=== PATIENT | female | born 1970 | race Hispanic/Latino ===

== ENCOUNTER 2020-02-28 17:56 | Emergency (ER) | payer OTHER ==
[~2020-02-28] VITALS: Ht 160 cm; Wt 74.8 kg
[2020-02-28] MEDS ORDERED: HYDROCODONE/APAP 10MG-325MG TAB PO NR (18:15)
--- NOTE | 2020-02-28 18:55 | Diagnostic Imaging Report ---
Exam: Right ankle 3 views, right foot 3 views History: Twisted ankle Comparison: None. Findings: No acute, displaced fracture or dislocation. Tibial plafond and talar dome are well-maintained. Ankle mortise is preserved. Appropriate alignment between the medial cuneiform and second metatarsal base in keeping with an intact Lisfranc ligament. Joint spaces are well-maintained. Soft tissues unremarkable. Impression: No acute osseous abnormality. Signed by: Dr. Sudheer Amin M.D. on 02/28/2020 6:52 PM
--- NOTE | 2020-02-28 18:59 | Diagnostic Imaging Report ---
Exam: Right lower leg 2 views History: Twisted ankle, injury Comparison: None. Findings: No acute, displaced fracture or dislocation. Partially visualized knee joint space is well-maintained. Soft tissues unremarkable. Impression: No acute osseous abnormality. Signed by: Dr. Sudheer Amin M.D. on 02/28/2020 6:55 PM
== END 2020-02-28 20:10 | disposition home or self-care (01) ==
LOC: ER 18:10
DX: S93.491A Sprain of other ligament of right ankle, initial encounter (principal); M25.571 Pain in right ankle and joints of right foot; X50.1XXA Overexertion from prolonged static or awkward postures, initial encounter; Y92.008 Other place in unspecified non-institutional (private) residence as the place of occurrence of the external cause; I10 Essential (primary) hypertension; F41.9 Anxiety disorder, unspecified
CPT/HCPCS: 99283

== ENCOUNTER 2022-01-27 22:12 | Emergency (ER) | payer OTHER ==
[~2022-01-27] VITALS: Ht 160 cm; Wt 72.6 kg
[2022-01-27] MEDS ORDERED: DEXAMETHASONE SOD PHOS 10 MG/1 ML VIAL IM ONE (22:30)
[2022-01-27] MEDS ORDERED: KETOROLAC TROMETHAMINE 60 MG/2 ML VIAL IM ONE (22:30)
[2022-01-27] MEDS ORDERED: DEXAMETHASONE SOD PHOS 10 MG/1 ML VIAL ONE (22:35)
== END 2022-01-27 23:00 | disposition home or self-care (01) ==
LOC: ER 22:20
DX: M25.511 Pain in right shoulder (principal); S46.811A Strain of other muscles, fascia and tendons at shoulder and upper arm level, right arm, initial encounter; X50.9XXA Other and unspecified overexertion or strenuous movements or postures, initial encounter; Y93.K1 Activity, walking an animal; Y92.89 Other specified places as the place of occurrence of the external cause
CPT/HCPCS: 99283; J1100

== ENCOUNTER 2025-04-12 18:53 | Emergency (ER) | payer SELFPAY ==
[~2025-04-12] VITALS: Ht 160 cm; Wt 68.0 kg
[~2025-04-12 18:53] MED LIST: BENZONATATE200 MG PO; CYCLOBENZAPRINE5 MG PO; ESIDRIX25 MG PO; MEDROL4 M2 PO; PANTOPRAZOLE SO40 MG PO; PAXLOVID 150-11 EAC1 PO; PREDNISONE20 MG PO; SLOW RELEASE I168 MG PO; SYNTHROID50 MCG PO; ULTRAM 50MG50 MG PO
[2025-04-12 19:07] VITALS: TEMP 98.4
[2025-04-12 19:28] LABS: BASOPHILS % 0.2 % (0.0-1.0); EOSINOPHILS # (AUTO) 0.1 (0.0-0.4); EOSINOPHILS % 2.3 % (0.0-6.0); HEMATOCRIT 34.7 % (34.2-44.1); HEMOGLOBIN 11.1 g/dL (12.0-16.0); LYMPHOCYTES # (AUTO) 0.9 (1.0-3.2); LYMPHOCYTES % 20.9 % (18.0-39.1); MEAN CORPUSCULAR HEMOGLOBIN 25.9 pg (28-32); MEAN CORPUSCULAR VOLUME 81.1 fL (81-99); MONOCYTES # (AUTO) 0.2 (0.2-0.8); MONOCYTES % 4.7 % (4.4-11.3); NEUTROPHILS # (AUTO) 3.1 (2.1-6.9); NEUTROPHILS % 71.4 % (38.7-80.0); PLATELET COUNT 275 x10e3/uL (140-360); RED BLOOD COUNT 4.28 x10e6/uL (3.6-5.1); RED CELL DISTRIBUTION WIDTH 13.7 % (11.7-14.4)
[2025-04-12 19:49] LABS: ALBUMIN 3.7 g/dL (3.5-5.0); ALBUMIN/GLOBULIN RATIO 1.1 (0.8-2.0); ANION GAP 14.3 mmol/L (8-16); BILIRUBIN,TOTAL 0.6 mg/dL (0.2-1.2); CALCIUM 8.8 mg/dL (8.4-10.2); CREATININE, SERUM 0.74 mg/dL (0.57-1.11); TOTAL PROTEIN 7.1 g/dL (6.5-8.1)
[2025-04-12 19:53] LABS: POTASSIUM 3.3 mmol/L (3.5-5.1)
[2025-04-12 20:23] LABS: TROPONIN I < 0.001 ng/mL (0-0.300)
[2025-04-12] MEDS: Morphine 4mg INJECTION 4 MG/ML INJ IV ONE (20:34)
[2025-04-12] MEDS: ONDANSETRON HCL INJ 2MG/ML 2ML 2 MG/ML VIAL IV STA (20:34)
[2025-04-12 20:36] LABS: LIPASE 5 U/L (8-78)
[2025-04-12] MEDS ORDERED: IOPAMIDOL 370 MG/ML 100 ML INFUS..BTL INJ ONE (20:41)
[2025-04-12] MEDS ORDERED: SODIUM CHLORIDE 0.9% 100 ML ONE (20:41)
[2025-04-12 22:13] VITALS: PULSE 82; RESP 17
[2025-04-12] MEDS ORDERED: ENULOSE10 GM/15 M PO (23:06)
[2025-04-12 23:53] VITALS: BP 111/74; PULSE 88; RESP 16; TEMP 98.5; O2SAT 99
== END 2025-04-12 23:30 | disposition home or self-care (01) ==
LOC: ER 19:15
DX: R10.30 Lower abdominal pain, unspecified (principal); K59.00 Constipation, unspecified; E78.5 Hyperlipidemia, unspecified; J45.909 Unspecified asthma, uncomplicated; R73.03 Prediabetes; E03.9 Hypothyroidism, unspecified; D64.9 Anemia, unspecified; R94.31 Abnormal electrocardiogram [ECG] [EKG]
CPT/HCPCS: 36415; 74174; 80053; 83690; 84484; 84702; 85025; 93005; 99284; J2270; J2405; J7050; Q9967